=== PATIENT | male | born 1985 | race African-American/Black ===

== ENCOUNTER 2018-05-11 10:24 | Emergency (ER) | payer OTHER ==
[~2018-05-11] VITALS: Ht 193 cm; Wt 117.9 kg
[2018-05-11 10:29] VITALS: BP 169/92
--- NOTE | 2018-05-11 10:30 | NUR ---
32/M BIB SELF C/O LEFT RIB PAIN S/P BASKETBALL INJURY X YESTERDAY; NO DISCOLORATION OR SWELLING NOTED; NO CREPITUS PALPATED; BED DOWN; BEDRAIL UP X 1; ER MD AWARE AND NOTIFIED OF PT STATUS. HX---DENIES RX----NONE
--- NOTE | 2018-05-11 10:48 | NUR ---
PT TAKEN TO RAD
--- NOTE | 2018-05-11 10:58 | NUR ---
PT BACK FROM RAD
[2018-05-11] MEDS ORDERED: KETOROLAC 60 MG/2 ML VIAL IM SCH (12:54)
[2018-05-11 13:16] VITALS: BP 169/92
--- NOTE | 2018-05-11 13:16 | NUR ---
Patient discharged with v/s stable. Written and verbal after care instructions given and explained. Patient alert, oriented and verbalized understanding of instructions. Ambulatory with steady gait. All questions addressed prior to discharge. ID band removed. Patient advised to follow up with PMD. Rx of NORCO AND IBUPROFEN given. Patient educated on indication of medication including possible reaction and side effects. Opportunity to ask questions provided and answered.
== END 2018-05-11 13:16 | disposition home or self-care (01) ==
LOC: MED 10:24
DX: S20.212A Contusion of left front wall of thorax, initial encounter (principal); X58.XXXA Exposure to other specified factors, initial encounter; Y93.67 Activity, basketball; Y92.89 Other specified places as the place of occurrence of the external cause; Y99.8 Other external cause status
CPT/HCPCS: 71101; 96372; 99284; J1885